=== PATIENT | female | born 1935 | race African-American/Black ===

== ENCOUNTER → 2016-09-19 | Outpatient (CLI) | payer MEDICARE ==
[2016-01-15 09:55] VITALS: BP 120/87
[~2016-09-19] MED LIST: ACET325T9 PO; ALBU2.5V14 NEB; AMLO5TAB2 FT; AMLO5TAB4 PO; ASPI-482 PO; ASPI325T4 FT; ATEN-57 PO; ATEN50TA PO; ATOR20TA58 PO; Albuterol Sulfate NEB; Amoxicillin/Potassium Clav PO; Bisacodyl PO; CARV3.122 FT; CARV6.252 FT; CARV6.252 PO; DOCU-27 PO; DOCU50LI PO; ERGO500012 FT; ERGO500012 PO; FAMO-63 PO; FAMO20TA5 FT; HYDR-2672 PO; HYDR-971 FT; Hydrocodone/Acetaminophen PO; Ipratropium/Albuterol Sulfate NEB; LIDO700A4 TD; LISI-338 FT; LISI-338 PO; LISI10TA2 PO; POTA20LI14 PO; SCOP1PAT TD; fluticasone
--- NOTE | 2016-09-19 12:40 | KCIC ---
PROCEDURE Acute abdominal series. HISTORY Abdominal bloating. COMPARISON KUB, January 15, 2016. FINDINGS Tortuous thoracic aorta. Cardiac size normal. Discoid atelectasis or scarring left lung base. Lungs otherwise clear. No pleural abnormality. Degenerative arthropathy of the shoulders. No evidence of intraperitoneal free air. There is air in colon at the splenic flexure. There is gastrostomy tube, positioned in expected location of the stomach. No dilated small bowel loops are seen. Vascular calcifications and phleboliths are seen in the pelvis. Minimal reverse S shaped thoracolumbar scoliosis. IMPRESSION 1. Nonobstructive bowel gas pattern. 2. Discoid atelectasis or scarring in the left lung base. Electronically signed by: Tae Castillo MD (Sep 19, 2016 12:39:37)
== END | disposition home or self-care (01) ==
LOC: KCIC 10:49
PROVIDERS: ATTEND Family Medicine
DX: J98.4 Other disorders of lung (principal); J98.11 Atelectasis; M41.85 Other forms of scoliosis, thoracolumbar region
CPT/HCPCS: 74022

== ENCOUNTER 2016-11-14 17:50 | Emergency (ER) | payer MEDICARE ==
[~2016-11-14] VITALS: Ht 152.4 cm; Wt 46.7 kg
--- NOTE | 2016-11-14 18:39 | PHYS DOC ---
Past Medical History Past Medical History: CVA, High Cholesterol, Hypertension, Other Additional Past Medical Histor: Fx lower back,fx leg (1954-doesn't remember which leg.) Past Surgical History: Hysterectomy, Other Additional Past Surgical Histo: G-tube placement (2013) Alcohol Use: None Drug Use: None Adult General Chief Complaint Chief Complaint: GTUBE REPLACEMENT/MALFUNCTION HPI HPI 81-year-old female presenting to the emergency department today with abdominal pain. 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 Her caretakers here with her today along with her son. They described the patient has pain at the G-tube insertion site but also a deeper down abdominal pain with abdominal distention and is been present over the past few days. He reports last time it was exchanged was approximately 1 year ago. They report excoriation of the skin around the G-tube site. Onset 1 week. Location GI tract. Duration intermittent. No alleviating factors. They're reports feeding her insurer through the G-tube without difficulty and crushing of her medications and giving dose of the G-tube as well. Review of systems is negative for chest pain shortness of breath fevers chills nausea vomiting. All other review of systems is negative unless otherwise noted in history of present illness. Review of Systems Review of Systems SEE ABOVE. Allergies Allergies Allergies Coded Allergies Type Severity Reaction Last Updated Verified No Known Drug Allergies 03/27/14 No Physical Exam Physical Exam Constitutional: Well developed, well nourished, no acute distress, non-toxic appearance. HENT: Normocephalic, atraumatic, bilateral external ears normal, oropharynx moist, no oral exudates, nose normal. [] Eyes: PERRLA, EOMI, conjunctiva normal, no discharge. [] Neck: Normal range of motion, no tenderness, supple, no stridor. Cardiovascular:Heart rate regular rhythm, no murmur [] Lungs & Thorax: Bilateral breath sounds clear to auscultation [] Abdomen: Abdominal exam shows G-tube in place with mild excoriation around the skin around the G-tube. No erythema. No drainage present. Abdomen is nondistended without rebound tenderness or guarding. Negative McBurney's point. Negative Monk sign. Skin: Warm, dry, no erythema, no rash. Back: No tenderness, no CVA tenderness. Extremities: No tenderness, no cyanosis, no clubbing, ROM intact, no edema. [] Neurologic: Alert and oriented X 3, normal motor function, normal sensory function, no focal deficits noted. Psychologic: Affect normal, judgement normal, mood normal. [] Current Patient Data Vital Signs Vital Signs Date Time Temp Pulse Resp B/P (MAP) Pulse Ox O2 Delivery O2 Flow Rate FiO2 11/14/16 19:55 84 20 179/93 (121) 97 Room Air 11/14/16 18:15 98.1 98.1 Lab Values Laboratory Tests Test 11/14/16 18:40 11/14/16 18:45 Urine Collection Type U cath Urine Color Yellow Urine Clarity Clear Urine pH 7.0 Urine Specific [place] 1.025 Urine Protein 30 mg/dL (NEG-TRACE) Urine Glucose (UA) Negative mg/dL (NEG) Urine Ketones (Stick) Negative mg/dL (NEG) Urine Blood Negative (NEG) Urine Nitrite Negative (NEG) Urine Bilirubin Negative (NEG) Urine Urobilinogen Dipstick 1.0 mg/dL (0.2 mg/dL) Urine Leukocyte Esterase Negative (NEG) Urine RBC 3-5 /HPF (0-2) Urine WBC 0 /HPF (0-4) Urine Squamous Epithelial Cells Few /LPF Urine Transitional Epithelial Cells Few /LPF Urine Bacteria 0 /HPF (0-FEW) Urine Hyaline Casts Moderate /HPF Urine Mucus Slight /LPF White Blood Count 5.9 x10^3/uL (4.0-11.0) Red Blood Count 4.31 x10^6/uL (3.50-5.40) Hemoglobin 13.5 g/dL (12.0-15.5) Hematocrit 40.5 % (36.0-47.0) Mean Corpuscular Volume 94 fL (79-100) Mean Corpuscular Hemoglobin 31 pg (25-35) Mean Corpuscular Hemoglobin Concent 33 g/dL (31-37) Red Cell Distribution Width 15.4 % (11.5-14.5) H Platelet Count 224 x10^3/uL (140-400) Neutrophils (%) (Auto) 74 % (31-73) H Lymphocytes (%) (Auto) 11 % (24-48) L Monocytes (%) (Auto) 11 % (0-9) H Eosinophils (%) (Auto) 3 % (0-3) Basophils (%) (Auto) 1 % (0-3) Neutrophils # (Auto) 4.4 x10^3uL (1.8-7.7) Lymphocytes # (Auto) 0.7 x10^3/uL (1.0-4.8) L Monocytes # (Auto) 0.6 x10^3/uL (0.0-1.1) Eosinophils # (Auto) 0.2 x10^3/uL (0.0-0.7) Basophils # (Auto) 0.0 x10^3/uL (0.0-0.2) Sodium Level 137 mmol/L (136-145) Potassium Level 4.1 mmol/L (3.5-5.1) Chloride Level 100 mmol/L (98-107) Carbon Dioxide Level 28 mmol/L (21-32) Anion Gap 9 (6-14) Blood Urea Nitrogen 19 mg/dL (7-20) Creatinine 0.6 mg/dL (0.6-1.0) Estimated GFR (Cockcroft-Gault) 115.5 BUN/Creatinine Ratio 32 (6-20) H Glucose Level 126 mg/dL (70-99) H Calcium Level 9.0 mg/dL (8.5-10.1) Total Bilirubin 0.2 mg/dL (0.2-1.0) Aspartate Amino Transferase (AST) 104 U/L (15-37) H Alanine Aminotransferase (ALT) 110 U/L (14-59) H Alkaline Phosphatase 80 U/L (46-116) Troponin I Quantitative 0.023 ng/mL (0.000-0.055) Total Protein 7.8 g/dL (6.4-8.2) Albumin 3.4 g/dL (3.4-5.0) Albumin/Globulin Ratio 0.8 (1.0-1.7) L Lipase 89 U/L (73-393) Laboratory Tests 11/14/16 18:45 Laboratory Tests 11/14/16 18:45 EKG EKG [] Radiology/Procedures Radiology/Procedures [] Course & Med Decision Making Course & Med Decision Making Pertinent Labs and Imaging studies reviewed. (See chart for details) [] 81-year-old female presenting to the emergency department with abdominal pain with subjective abdominal distention. Vital signs. IV established and blood work obtained. CT the abdomen pelvis noncontrast obtained. Chest x-ray, EKG, and Urinalysis obtained. CT abdomen and pelvis showed possible right lower lobe pneumonia. Otherwise patient's CBC was unremarkable. Urinalysis unremarkable. Chemistry panel shows mild elevation in AST and ALT with a normal bilirubin. Mild uremia present as well. Troponin within the reference range of normal. The patient was placed on azithromycin. The patient was then discharged home in stable condition to follow up with their primary care physician over the next 2-3 days. They were to return if their symptoms worsened or if they were concerned for any reason. [id number] discharge instructions and return precautions were given. Patient's questions were answered to their satisfaction. Patient is comfortable plan. Dragon Disclaimer Dragon Disclaimer This electronic medical record was generated, in whole or in part, using a voice recognition dictation system. Departure Departure Impression: Primary Impression: Abdominal pain Additional Impression: PNA (pneumonia) Disposition: HOME, SELF-CARE Condition: STABLE Referrals: MOOK BRYAN MD (PCP) Patient Instructions: Abdominal Pain Additional Instructions: Thank you for allowing us to participate in your care today. Followup with your primary care physician in 3 days if your symptoms do not improve. If you do not have a primary care provider you can ask for a list of our primary care providers. Return to the emergency department you have any new or concerning findings. This should be evaluated by the primary care physician and any necessary consulting services for continued management within a few days after discharge. Return to emergency room if you have any new or concerning symptoms including but not limited to fever, chills, nausea, vomiting, intractable pain, any new rashes, chest pain, shortness of air, uncontrolled bleeding, difficulty breathing, and/or vision loss. Scripts Azithromycin (AZITHROMYCIN TABLET) 250 Mg Tablet 1 PKG PO UD, #6 TAB Prov: LAUREN LOPEZ MD 11/14/16 Problem Qualifiers Primary Impression: Abdominal pain Abdominal location: generalized Qualified Codes: R10.84 - Generalized abdominal pain LAUREN LOPEZ MD November 14, 2016 18:39
[2016-11-14 19:00] LABS: BILIRUBIN,URINE NEGATIVE (NEG); GLUCOSE,URINE NEGATIVE (NEG); NITRITE,URINE NEGATIVE (NEG); PROTEIN,URINE 30 mg/dL (NEG-TRACE)
[2016-11-14 19:02] LABS: BASO % 1 % (0-3); EOS % 3 % (0-3); HEMATOCRIT 40.5 % (36.0-47.0); HEMOGLOBIN 13.5 g/dL (12.0-15.5); LYMPH # 0.7 x10^3/uL (1.0-4.8); LYMPH % 11 % (24-48); MEAN CORPUSCULAR HEMOGLOBIN 31 pg (25-35); MEAN CORPUSCULAR HGB CONC 33 g/dL (31-37); MEAN CORPUSCULAR VOLUME 94 fL (79-100); MONO % 11 % (0-9); NEUT % 74 % (31-73); PLATELET COUNT 224 x10^3/uL (140-400); RED BLOOD COUNT 4.31 x10^6/uL (3.50-5.40); RED CELL DISTRIBUTION WIDTH 15.4 % (11.5-14.5); WHITE BLOOD COUNT 5.9 x10^3/uL (4.0-11.0)
[2016-11-14 19:07] LABS: BACTERIA,URINE 0 /HPF (0-FEW); SQUAMOUS EPITHELIAL CELL,UR FEW /LPF; WBC,URINE 0 /HPF (0-4)
[2016-11-14 20:01] LABS: CREATININE 0.6 mg/dL (0.6-1.0); GFR 115.5; POTASSIUM 4.1 mmol/L (3.5-5.1)
[2016-11-14 20:07] LABS: ALBUMIN 3.4 g/dL (3.4-5.0); ALBUMIN/GLOBULIN RATIO 0.8 (1.0-1.7); TOTAL BILIRUBIN 0.2 mg/dL (0.2-1.0); TOTAL PROTEIN 7.8 g/dL (6.4-8.2)
--- NOTE | 2016-11-14 20:13 | RAD ---
PROCEDURE CT study of the abdomen and pelvis without contrast HISTORY Abdominal pain. TECHNIQUE Noncontrast helical CT scanning of the abdomen and pelvis was performed. Without contrast, the sensitivity to detect organ pathology and GI tract pathology is decreased. One or more of the following individualized dose reduction techniques were utilized for this study: 1. Automated exposure control 2. Adjustment of the mA and/or kV according to patient size 3. Use of iterative reconstruction technique FINDINGS The liver and spleen and pancreas are unremarkable on this noncontrast study. The gallbladder is normal and no extrahepatic biliary ductal dilatation is seen. No adrenal mass is evident. No hydronephrosis or hydroureter or urinary tract stone is evident. Urinary bladder wall is smooth. There is a moderate fecal retention seen throughout the colon and rectum. No small bowel dilatation is seen. PEG tube is seen and the balloon of the catheter is seen within the lumen of the distal body of the stomach. No free air or free fluid or mesenteric inflammatory change is seen. The appendix is not visualized on this study. Infiltrate is present within the right lower lobe. Atelectasis is seen within the left lung base. Heart size is normal. Calcified atheromatous disease of the coronary arteries is seen. No osteolytic process is seen. There is a mild compression deformity of the superior endplate of L2. IMPRESSION Mild compression deformity of the superior endplate of L2. This is unchanged from a previous lumbar spine MRI study dated March 27, 2014. Moderate fecal retention throughout the colon and rectum. No other acute abnormality of the abdomen or pelvis is seen otherwise. There is an infiltrate present within the right lower lobe which could represent pneumonia. Calcified atheromatous disease of the coronary arteries. Electronically signed by: Raphael Rangel MD (November 14, 2016 20:12:48)
[2016-11-14] MEDS ORDERED: AZIT250T6 PO (20:23)
[2016-11-14 20:28] VITALS: BP 167/92
--- NOTE | 2016-11-14 22:06 | EKG ---
[facility] [address] [place] [address] Test Date: 2016-11-14 Test Time: 18:36:45 Pat Name: PEREZ PENA Department: Room: Gender: F Mobile Application Developer: : [id number] Requested By: LAUREN LOPEZ Order Number: [id number] Reading MD: Nancy Avila Measurements Intervals [place] Rate: 83 P: 48 [place]: 142 QRS: -7 QRSD: 76 T: 72 QT: 414 QTc: 487 Interpretive Statements SINUS RHYTHM LEFTWARD AXIS NON SPECIFIC T ABNORMALITY Electronically Signed On 11-16-2016 17:55:22 CDT by Nancy Avila
== END 2016-11-14 20:46 | disposition home or self-care (01) ==
LOC: ER 17:50
DX: R10.84 Generalized abdominal pain (principal); J18.9 Pneumonia, unspecified organism; E78.00 Pure hypercholesterolemia, unspecified; I10 Essential (primary) hypertension; Z86.73 Personal history of transient ischemic attack (TIA), and cerebral infarction without residual deficits; Z93.1 Gastrostomy status
CPT/HCPCS: 36415; 51701; 74176; 80053; 81001; 83690; 84484; 85027; 93005; 99285-25

== ENCOUNTER → 2017-01-07 | Outpatient (CLI) | payer MEDICARE ==
[~2017-01-07] MED LIST changes: -ASPI325T4 FT; +ASPI325T8 FT; +AZIT250T6 PO; +DOCU-109 PO; -DOCU-27 PO; -ERGO500012 FT; -ERGO500012 PO; +ERGO500027 FT; +ERGO500027 PO; -HYDR-2672 PO; +HYDR-2766 PO
--- NOTE | 2017-01-07 10:08 | RAD ---
Indication: Abnormal liver function tests. The pancreas was poorly visualized. IVC is unremarkable. The liver demonstrates homogeneous echotexture. No discrete mass is detected. The gallbladder is without stones or sludge. No wall thickening or pericholecystic fluid is seen. There is no biliary ductal dilatation. The right kidney is unremarkable. There is no ascites. Impression: Unremarkable right upper quadrant ultrasound.
== END | disposition home or self-care (01) ==
LOC: US 09:24
PROVIDERS: ATTEND Family Medicine
DX: R79.89 Other specified abnormal findings of blood chemistry (principal)
CPT/HCPCS: 76705

== ENCOUNTER 2017-02-19 17:59 | Emergency (ER) | payer MEDICARE ==
[2017-02-19 19:15] VITALS: BP 146/86
[2017-02-19] MEDS ORDERED: LIDOCAINE 2% JELLY 6ML IN APPLICATOR. MM ONE (20:30)
[2017-02-19 20:46] LABS: BASO % 1 % (0-3); EOS % 4 % (0-3); HEMATOCRIT 42.3 % (36.0-47.0); HEMOGLOBIN 13.8 g/dL (12.0-15.5); LYMPH # 0.7 x10^3/uL (1.0-4.8); LYMPH % 15 % (24-48); MEAN CORPUSCULAR HEMOGLOBIN 32 pg (25-35); MEAN CORPUSCULAR HGB CONC 33 g/dL (31-37); MEAN CORPUSCULAR VOLUME 98 fL (79-100); MONO % 10 % (0-9); NEUT % 71 % (31-73); PLATELET COUNT 204 x10^3/uL (140-400); RED BLOOD COUNT 4.33 x10^6/uL (3.50-5.40); RED CELL DISTRIBUTION WIDTH 13.8 % (11.5-14.5)
[2017-02-19 20:58] LABS: CALCIUM 8.9 mg/dL (8.5-10.1); CREATININE 0.6 mg/dL (0.6-1.0); GFR 115.5; POTASSIUM 4.2 mmol/L (3.5-5.1)
[2017-02-19] MEDS ORDERED: HYDROcodon/APAP 7.5/325MG ORAL 15 ML SOLUTION GT ONE (22:15)
[2017-02-19] MEDS ORDERED: IOHEXOL 350 MG/ML 100 ML VIAL. PO ONE (22:45)
[2017-02-19] MEDS ORDERED: CONTRAST GIVEN MC PRN (22:45)
--- NOTE | 2017-02-20 01:26 | ED.ADGEN ---
Past Medical History Past Medical History: CVA, High Cholesterol, Hypertension, Other Additional Past Medical Histor: Fx lower back,fx leg (1954-doesn't remember which leg) Past Surgical History: Hysterectomy, Other Additional Past Surgical Histo: G-tube placement (2013) Alcohol Use: None Drug Use: None Adult General Chief Complaint Chief Complaint: OTHER COMPLAINTS HPI HPI Patient is a 81 year old woman, history of CVA, hypertension, hypercholesterolemia, who presents the emergency department with family with report of a dislodged PEG tube. Per report from family, PEG tube fell out this morning. This PEG tube is been in place for about a year, previously was working without issue. Patient was seen by her primary care provider several days ago, at that time was prescribed antibiotics for inflammation and irritation surrounding the PEG tube site. Patient has been tolerating PEG tube feeds and flushes without issue up until the issue this morning. No fevers, no chills, was complaining of some pain after the PEG tube fell out, states that sometimes "when she gets upset she'll cry and then she'll have vomiting". One episode of vomiting after crying today after PEG tube was dislodged, this happened several hours prior to arrival in the ED. Patient's daughter is her primary senior brand manager. She states the patient is also experiencing pain in breakdown on her buttocks. G-tube is present in the emergency department, noted to have some degeneration of the distal aspect of the tube, and deflation of the balloon. Tube is fully intact. Review of Systems Review of Systems Constitutional: Denies fever or chills. [] Eyes: Denies change in visual acuity. [] HENT: Denies nasal congestion or sore throat. [] Respiratory: Denies cough or shortness of breath. [] Cardiovascular: Denies chest pain or edema. [] GI: Denies abdominal pain, nausea, vomiting, bloody stools or diarrhea. Dislodged PEG tube. : Denies dysuria. [] Musculoskeletal: Denies back pain or joint pain. [] Integument: Denies rash. [] Skin breakdown in the buttock area. Neurologic: Denies headache, focal weakness or sensory changes. [] Endocrine: Denies polyuria or polydipsia. [] Lymphatic: Denies swollen glands. [] Psychiatric: Denies depression or anxiety. [] Current Medications Current Medications Current Medications Medications (Trade) Dose Ordered Sig/[place] Start Time Stop Time Status Last Admin Dose Admin Acetaminophen/ Hydrocodone Bitart (Lortab 7.5-325/ 15ml Oral Solution) 15 ml 1X ONCE 02/19/17 22:15 02/19/17 22:16 DC 02/19/17 23:17 15 ML Info (Do NOT chart on this entry -- for MONITORING) 1 each PRN DAILY PRN 02/19/17 22:45 02/19/17 23:59 DC Iohexol (Omnipaque 350 Mg/ml) 100 ml 1X ONCE 02/19/17 22:45 02/19/17 22:46 DC Lidocaine HCl (Glydo (Lidocaine) Jelly) 1 alon 1X ONCE 02/19/17 20:30 02/19/17 20:31 DC 02/19/17 20:51 1 ALON Allergies Allergies Allergies Coded Allergies Type Severity Reaction Last Updated Verified No Known Drug Allergies 03/27/14 No Physical Exam Physical Exam Constitutional: Well developed, well nourished, no acute distress, non-toxic appearance, chronically ill in appearance. [] HENT: Normocephalic, atraumatic, bilateral external ears normal, oropharynx moist, no oral exudates, nose normal. [] Eyes: PERRLA, EOMI, conjunctiva normal, no discharge. [] Neck: Normal range of motion, no tenderness, supple, no stridor. [] Cardiovascular:Heart rate regular rhythm, no murmur , S1, S2, rubs or gallops. [ ] Lungs & Thorax: Bilateral breath sounds clear to auscultation, no wheezing, rhonchi, rales. No chest wall crepitus or tenderness. [] Abdomen: Bowel sounds normal, soft, patient with evidence of irritation, and some mild induration noted surrounding the gastric stoma, no evidence of breakdown, there is no discharge or drainage, patient with complaint of mild tenderness in this area, but active bowel sounds noted, G-tube replaced without difficulty, easily able to aspirate gastric contents, flushing without any difficulty, no masses, no pulsatile masses. [] Skin: Warm, dry, erythema and irritation noted surrounding the gastric stoma as stated, patient also noted to have states to breakdown on the sacral region, no evidence of drainage or abscess formation, barrier cream was applied to this area. Back: No tenderness, no CVA tenderness. [] Extremities: No tenderness, no cyanosis, no clubbing, ROM intact, no edema. [] Neurologic: Alert and oriented X 3, normal motor function, normal sensory function, no focal deficits noted. [] Psychologic: Affect normal, judgement normal, mood normal. [] Current Patient Data Vital Signs Vital Signs Date Time Temp Pulse Resp B/P (MAP) Pulse Ox O2 Delivery O2 Flow Rate FiO2 02/19/17 23:17 Room Air 02/19/17 19:15 97.4 72 18 146/86 (106) 95 97.4 Lab Values Laboratory Tests Test 02/19/17 20:40 White Blood Count 5.0 x10^3/uL (4.0-11.0) Red Blood Count 4.33 x10^6/uL (3.50-5.40) Hemoglobin 13.8 g/dL (12.0-15.5) Hematocrit 42.3 % (36.0-47.0) Mean Corpuscular Volume 98 fL (79-100) Mean Corpuscular Hemoglobin 32 pg (25-35) Mean Corpuscular Hemoglobin Concent 33 g/dL (31-37) Red Cell Distribution Width 13.8 % (11.5-14.5) Platelet Count 204 x10^3/uL (140-400) Neutrophils (%) (Auto) 71 % (31-73) Lymphocytes (%) (Auto) 15 % (24-48) L Monocytes (%) (Auto) 10 % (0-9) H Eosinophils (%) (Auto) 4 % (0-3) H Basophils (%) (Auto) 1 % (0-3) Neutrophils # (Auto) 3.5 x10^3uL (1.8-7.7) Lymphocytes # (Auto) 0.7 x10^3/uL (1.0-4.8) L Monocytes # (Auto) 0.5 x10^3/uL (0.0-1.1) Eosinophils # (Auto) 0.2 x10^3/uL (0.0-0.7) Basophils # (Auto) 0.0 x10^3/uL (0.0-0.2) Sodium Level 140 mmol/L (136-145) Potassium Level 4.2 mmol/L (3.5-5.1) Chloride Level 103 mmol/L (98-107) Carbon Dioxide Level 32 mmol/L (21-32) Anion Gap 5 (6-14) L Blood Urea Nitrogen 12 mg/dL (7-20) Creatinine 0.6 mg/dL (0.6-1.0) Estimated GFR (Cockcroft-Gault) 115.5 Glucose Level 94 mg/dL (70-99) Calcium Level 8.9 mg/dL (8.5-10.1) Laboratory Tests 02/19/17 20:40 Laboratory Tests 02/19/17 20:40 EKG EKG Not indicated. [] Radiology/Procedures Radiology/Procedures KUB with Gastrografin: Patient with contrast noted within the gut lumen, no evidence of extravasation. Patient with stool and bowel gas noted throughout, no evidence of obstruction, no free air. As interpreted by me. Course & Med Decision Making Course & Med Decision Making Pertinent Labs and Imaging studies reviewed. (See chart for details) Laboratory studies obtained, due to report of abdominal pain with, somewhat of vomiting, patient noted to have superficial irritation surrounding the stoma site, but no evidence of abscess formation, induration is noted as stated, no discharge or drainage. Patient's family states that "it looks better than it did when we saw the doctor a few days ago". They state they have been giving the patient her Keflex via the PEG tube without issue. Patient with application of lidocaine gel to stoma site and tube, tube was replaced without difficulty, easily flushing, with aspiration of gastric contents, positioning confirmed on KUB with Gastrografin. Patient was given pain medication in the ED without issue , did evaluate evidence of breakdown and buttocks, and instructed family on importance of rotation every 2 hours, use of barrier cream, and pillows for support and comfort. Patient to follow-up with Dr. Chau, her primary care provider as scheduled, and return to the ED for any concerning symptoms as discussed. Patient discharged home with family in stable condition with plan and precautions as above. Dragon Disclaimer Dragon Disclaimer This electronic medical record was generated, in whole or in part, using a voice recognition dictation system. Departure Impression: Primary Impression: Gastrostomy tube dysfunction Disposition: HOME, SELF-CARE Condition: IMPROVED CRISTINA SEARS DO Feb 20, 2017 01:26
--- NOTE | 2017-02-20 07:45 | RAD ---
Indication PEG tube confirmation. 50 cc of Omnipaque 350 was injected through an indwelling PEG tube. A single KUB was obtained. The contrast injected is positioned at the fundus of the stomach compatible with an appropriately positioned PEG tube. The visualized gas pattern is normal. IMPRESSION: Appropriately positioned PEG tube
== END 2017-02-19 23:40 | disposition home or self-care (01) ==
LOC: ER 17:59
DX: K94.29 Other complications of gastrostomy (principal); E78.00 Pure hypercholesterolemia, unspecified; I10 Essential (primary) hypertension; Z93.1 Gastrostomy status; Z86.73 Personal history of transient ischemic attack (TIA), and cerebral infarction without residual deficits
CPT/HCPCS: 36415; 43760; 74000; 80048; 85027; 99285-25